=== PATIENT | female | born 1940 | race Caucasian/White ===

== ENCOUNTER 2019-11-18 20:02 | Inpatient (IN) ==
[2019-11-18] MEDS ORDERED: methylPREDNISolone 125 MG/2 ML VIAL IVP ONE (20:10)
[2019-11-18] MEDS ORDERED: Ipratropium/Albuterol Neb 3 ML IH ONE ×3 (20:10→21:05)
[2019-11-18 20:40] LABS: Basophils % 0.3 %; Eosinophils % 0.2 %; Hematocrit 34.2 % (35.3-44.9); Hemoglobin 10.7 g/dL (11.5-15.4); Immature Granulocytes % 0.5 % (0-4); Lymphocytes # 1.1 K/mcL (0.6-4.6); Mean Corpuscular HGB Conc 31.3 g/dL (31.6-35.5); Mean Corpuscular Hemoglobin 23.2 pg (28.0-33.3); Mean Corpuscular Volume 74.2 fL (83.0-100.0); Mean Platelet Volume 9.8 fL (9.4-12.4); Monocytes # 0.1 K/mcL (0.0-1.3); Monocytes % 1.5 %; Neutrophils # 4.7 K/mcL (1.6-8.9); Platelet Count 242 K/mcL (140-400); Red Blood Count 4.61 M/mcL (3.82-4.97); Red Cell Distribution Width 17.3 % (11.5-14.5); Segmented Neutrophils % 78.5 %
[2019-11-18 20:42] LABS: Prothrombin Time 11.7 Seconds (9.4-12.1)
[2019-11-18 21:00] LABS: BUN/Creatinine Ratio 21 (6-26); Blood Urea Nitrogen 15 mg/dL (8-23); Calcium 8.9 mg/dL (8.6-10.3); Carbon Dioxide 21 mEq/L (23-29); Chloride 92 mEq/L (98-107); Glucose 221 mg/dL (70-105); Osmolality,Calculated 264 (280-300); Potassium 4.6 mEq/L (3.5-5.1); Sodium 123 mEq/L (136-145); Troponin I < 0.03 ng/mL (< 0.04); eGFR For African Americans > 60 (> 60); eGFR For Non-African Americans > 60 (> 60)
[2019-11-19] MEDS ORDERED: Naloxone 0.4 MG/ML INJ IVP PRN (00:38)
[2019-11-19] MEDS ORDERED: *HR* Dextrose 50 % in Water (Syg) 50 ML SYRINGE IVP PRN (00:51)
[2019-11-19] MEDS ORDERED: D5% in Water 1,000 ML IVC PRN (00:51)
[2019-11-19] MEDS ORDERED: Dextrose Gel 15 GM/37.5 ML TUBE PO PRN ×2 (00:51)
[2019-11-19] MEDS ORDERED: 0.9 % Sodium Chloride 1,000 ML IVC SCH (01:00)
[2019-11-19 04:05] LABS: Basophils % 0.3 %; Hematocrit 31.9 % (35.3-44.9); Hemoglobin 10.1 g/dL (11.5-15.4); Immature Granulocytes % 0.7 % (0-4); Lymphocytes # 0.6 K/mcL (0.6-4.6); Lymphocytes % 19.8 %; Mean Corpuscular HGB Conc 31.7 g/dL (31.6-35.5); Mean Corpuscular Hemoglobin 22.7 pg (28.0-33.3); Mean Corpuscular Volume 71.8 fL (83.0-100.0); Mean Platelet Volume 9.9 fL (9.4-12.4); Neutrophils # 2.4 K/mcL (1.6-8.9); Platelet Count 268 K/mcL (140-400); Red Blood Count 4.44 M/mcL (3.82-4.97); Segmented Neutrophils % 78.2 %
[2019-11-19 04:33] LABS: BUN/Creatinine Ratio 24 (6-26); Blood Urea Nitrogen 15 mg/dL (8-23); Calcium 8.3 mg/dL (8.6-10.3); Carbon Dioxide 19 mEq/L (23-29); Chloride 93 mEq/L (98-107); Glucose 251 mg/dL (70-105); Osmolality,Calculated 265 (280-300); Potassium 4.1 mEq/L (3.5-5.1); Sodium 123 mEq/L (136-145); eGFR For African Americans > 60 (> 60); eGFR For Non-African Americans > 60 (> 60)
[2019-11-19 04:35] LABS: % Iron Saturation 5 % (15-50); Iron 27 mcg/dL (50-170); Transferrin 380 mg/dL (203-362)
[2019-11-19 04:54] LABS: Ferritin 16 ng/mL (10-120)
[2019-11-19] MEDS: Azithromycin 500 MG in 0.9 % Sodium Chloride 250 ML IVPB SCH (05:51)
[2019-11-19 07:53] LABS: Estimated Average Glucose 169 mg/dl
[2019-11-19] MEDS: Insulin LISPRO 300 UNITS/3 ML VIAL SQ SCH ×3 (08:49→18:05)
[2019-11-19] MEDS: Metoprolol XL (24 HR) Succ 25 MG TAB.ER.24H PO SCH (08:49)
[2019-11-19] MEDS ORDERED: Morphine Sulfate 2 MG/ML SYRINGE IVP ONE (11:15)
[2019-11-19] MEDS: Ipratropium/Albuterol Neb 3 ML IH SCH ×4 (11:39→23:12)
[2019-11-19] MEDS: methylPREDNISolone 125 MG/2 ML VIAL IVP SCH ×3 (11:59→18:05)
[2019-11-19 15:05] LABS: BUN/Creatinine Ratio 27 (6-26); Blood Urea Nitrogen 15 mg/dL (8-23); Calcium 8.5 mg/dL (8.6-10.3); Carbon Dioxide 20 mEq/L (23-29); Chloride 92 mEq/L (98-107); Glucose 136 mg/dL (70-105); Osmolality,Calculated 251 (280-300); Potassium 4.4 mEq/L (3.5-5.1); Sodium 119 mEq/L (136-145); eGFR For African Americans > 60 (> 60); eGFR For Non-African Americans > 60 (> 60)
[2019-11-19 15:11] LABS: Adenovirus Not Detected (Not Detect); Bordetella Pertussis Not Detected (Not Detect); Chlamydophila pneumoniae Not Detected (Not Detect); Coronavirus 229E Not Detected (Not Detect); Coronavirus HKU1 Not Detected (Not Detect); Coronavirus NL63 Not Detected (Not Detect); Coronavirus OC43 Not Detected (Not Detect); Human Metapneumovirus Not Detected (Not Detect); Human Rhinovirus/Enterovirus Not Detected (Not Detect); Influenza A Subtype 2009 H1 Not Detected (Not Detect); Influenza B Not Detected (Not Detect); Mycoplasma pneumoniae Not Detected (Not Detect); Parainfluenza Virus 1 Not Detected (Not Detect); Parainfluenza Virus 2 Not Detected (Not Detect); Parainfluenza Virus 3 Not Detected (Not Detect); Parainfluenza Virus 4 Not Detected (Not Detect); Respiratory Syncytial Virus DETECTED (Not Detect)
[2019-11-19] MEDS: amLODIPine 5 MG TABLET PO SCH (18:05)
[2019-11-19] MEDS: *HR* Heparin 5,000 UNIT/ML VIAL SQ SCH (18:05)
[2019-11-19 21:04] LABS: BUN/Creatinine Ratio 28 (6-26); Blood Urea Nitrogen 18 mg/dL (8-23); Calcium 8.9 mg/dL (8.6-10.3); Carbon Dioxide 19 mEq/L (23-29); Chloride 90 mEq/L (98-107); Glucose 214 mg/dL (70-105); Osmolality,Calculated 260 (280-300); Potassium 4.2 mEq/L (3.5-5.1); Sodium 121 mEq/L (136-145); eGFR For African Americans > 60 (> 60); eGFR For Non-African Americans > 60 (> 60)
[2019-11-20] MEDS: methylPREDNISolone 125 MG/2 ML VIAL IVP SCH ×4 (00:30→17:13)
[2019-11-20 02:27] LABS: BUN/Creatinine Ratio 29 (6-26); Blood Urea Nitrogen 18 mg/dL (8-23); Calcium 8.5 mg/dL (8.6-10.3); Carbon Dioxide 19 mEq/L (23-29); Chloride 90 mEq/L (98-107); Glucose 224 mg/dL (70-105); Osmolality,Calculated 261 (280-300); Potassium 4.1 mEq/L (3.5-5.1); Sodium 121 mEq/L (136-145); eGFR For African Americans > 60 (> 60); eGFR For Non-African Americans > 60 (> 60)
[2019-11-20] MEDS: Ipratropium/Albuterol Neb 3 ML IH SCH ×5 (03:56→19:59)
[2019-11-20] MEDS: *HR* Heparin 5,000 UNIT/ML VIAL SQ SCH ×2 (05:06→17:13)
[2019-11-20] MEDS: Azithromycin 500 MG in 0.9 % Sodium Chloride 250 ML IVPB SCH (05:06)
[2019-11-20] MEDS: Insulin LISPRO 300 UNITS/3 ML VIAL SQ SCH ×3 (08:07→17:13)
[2019-11-20] MEDS: Metoprolol XL (24 HR) Succ 25 MG TAB.ER.24H PO SCH (08:08)
[2019-11-20] MEDS: amLODIPine 5 MG TABLET PO SCH (08:09)
[2019-11-20] MEDS: Insulin DETEMIR 100 UNIT/ML X5UNITS SQ SCH (12:36)
[2019-11-20 16:16] LABS: BUN/Creatinine Ratio 28 (6-26); Blood Urea Nitrogen 20 mg/dL (8-23); Calcium 8.9 mg/dL (8.6-10.3); Carbon Dioxide 22 mEq/L (23-29); Chloride 92 mEq/L (98-107); Glucose 268 mg/dL (70-105); Osmolality,Calculated 268 (280-300); Potassium 3.8 mEq/L (3.5-5.1); Sodium 123 mEq/L (136-145); eGFR For African Americans > 60 (> 60); eGFR For Non-African Americans > 60 (> 60)
[2019-11-21] MEDS: Ipratropium/Albuterol Neb 3 ML IH SCH ×7 (00:18→23:29)
[2019-11-21] MEDS: methylPREDNISolone 125 MG/2 ML VIAL IVP SCH ×2 (00:48→06:15)
[2019-11-21] MEDS: Azithromycin 500 MG in 0.9 % Sodium Chloride 250 ML IVPB SCH (04:32)
[2019-11-21 04:38] LABS: Hematocrit 30.6 % (35.3-44.9); Hemoglobin 9.8 g/dL (11.5-15.4); Mean Corpuscular Hemoglobin 23.3 pg (28.0-33.3); Mean Corpuscular Volume 72.7 fL (83.0-100.0); Platelet Count 265 K/mcL (140-400); Red Blood Count 4.21 M/mcL (3.82-4.97); Red Cell Distribution Width 17.4 % (11.5-14.5)
[2019-11-21 04:40] LABS: White Blood Count 8.7 K/mcL (4.3-11.1)
[2019-11-21 04:59] LABS: BUN/Creatinine Ratio 33 (6-26); Blood Urea Nitrogen 22 mg/dL (8-23); Calcium 8.6 mg/dL (8.6-10.3); Carbon Dioxide 24 mEq/L (23-29); Chloride 94 mEq/L (98-107); Glucose 264 mg/dL (70-105); Osmolality,Calculated 277 (280-300); Potassium 4.1 mEq/L (3.5-5.1); Sodium 127 mEq/L (136-145); eGFR For African Americans > 60 (> 60); eGFR For Non-African Americans > 60 (> 60)
[2019-11-21] MEDS: *HR* Heparin 5,000 UNIT/ML VIAL SQ SCH ×2 (06:15→17:30)
[2019-11-21] MEDS: amLODIPine 5 MG TABLET PO SCH (08:04)
[2019-11-21] MEDS: Insulin LISPRO 300 UNITS/3 ML VIAL SQ SCH ×3 (08:04→16:01)
[2019-11-21] MEDS: Metoprolol XL (24 HR) Succ 25 MG TAB.ER.24H PO SCH (08:04)
[2019-11-21] MEDS: Insulin DETEMIR 100 UNIT/ML X5UNITS SQ SCH (08:04)
[2019-11-21] MEDS ORDERED: NON-FORMULARY MEDICATION 1 EACH EACH (Amlodipine Besylate 10 MG) PO SCH (13:15)
[2019-11-21] MEDS: Lisinopril 20 MG TABLET PO SCH (14:45)
[2019-11-21 17:56] LABS: BUN/Creatinine Ratio 30 (6-26); Blood Urea Nitrogen 25 mg/dL (8-23); Calcium 9.1 mg/dL (8.6-10.3); Carbon Dioxide 24 mEq/L (23-29); Chloride 97 mEq/L (98-107); Glucose 224 mg/dL (70-105); Osmolality,Calculated 281 (280-300); Potassium 3.5 mEq/L (3.5-5.1); Sodium 130 mEq/L (136-145); eGFR For African Americans > 60 (> 60); eGFR For Non-African Americans > 60 (> 60)
[2019-11-21] MEDS ORDERED: Insulin LISPRO 300 UNITS/3 ML VIAL SQ SCH (21:00)
[2019-11-21] MEDS ORDERED: Insulin Human Regular 10 UNIT in 0.9 % Sodium Chloride 10 ML IV ONE (22:01)
[2019-11-22 02:30] LABS: BUN/Creatinine Ratio 36 (6-26); Blood Urea Nitrogen 26 mg/dL (8-23); Calcium 8.6 mg/dL (8.6-10.3); Carbon Dioxide 25 mEq/L (23-29); Chloride 97 mEq/L (98-107); Glucose 140 mg/dL (70-105); Osmolality,Calculated 279 (280-300); Potassium 3.6 mEq/L (3.5-5.1); Sodium 131 mEq/L (136-145); eGFR For African Americans > 60 (> 60); eGFR For Non-African Americans > 60 (> 60)
[2019-11-22] MEDS: Ipratropium/Albuterol Neb 3 ML IH SCH ×3 (04:06→11:43)
[2019-11-22] MEDS ORDERED: Chloraseptic Spray 177 ML BOTTLE MM PRN (05:23)
[2019-11-22] MEDS: *HR* Heparin 5,000 UNIT/ML VIAL SQ SCH (06:25)
[2019-11-22 07:15] VITALS: BP 133/59
[2019-11-22] MEDS: Insulin LISPRO 300 UNITS/3 ML VIAL SQ SCH ×2 (08:32→12:31)
[2019-11-22] MEDS: Lisinopril 20 MG TABLET PO SCH (08:32)
[2019-11-22] MEDS: Insulin DETEMIR 100 UNIT/ML X5UNITS SQ SCH (08:32)
[2019-11-22] MEDS: Metoprolol XL (24 HR) Succ 25 MG TAB.ER.24H PO SCH (08:33)
[2019-11-22] MEDS: amLODIPine 5 MG TABLET PO SCH (08:33)
[2019-11-22] MEDS ORDERED: predniSONE 20 MG TABLET PO SCH (09:00)
[2019-11-22] MEDS ORDERED: Azithromycin 250 MG TABLET PO SCH (09:00)
== END 2019-11-22 14:40 | disposition home or self-care (01) | DRG 190 ==
LOC: EMEROOARM 20:02 → 2NENU 20:02
PROVIDERS: ADMIT Student in an Organized Health Care Education/Training Program; ATTEND Student in an Organized Health Care Education/Training Program